=== PATIENT | female | born 1990 | race Caucasian/White ===

== ENCOUNTER 2021-03-16 19:05 | Outpatient (CLI) | payer SELFPAY | END 2021-03-16 19:06 | disposition EMS.NT | LOC: EMS 19:05 | DX: R55 Syncope and collapse (principal) ==

== ENCOUNTER 2022-03-08 08:00 | Outpatient (CLI) | payer OTHER ==
--- NOTE | 2022-03-08 10:06 | XRAY Report ---
PROCEDURE: Chest 2 View X-Ray INDICATIONS: COUGH TECHNIQUE: 2 view(s) of the chest. COMPARISON: None. FINDINGS: Surgical changes and devices: None. Lungs and pleura: No pleural effusions or pneumothorax. Lungs are clear. Mediastinum: Mediastinal contours are normal. Heart size is normal. Bones and chest wall: No suspicious bony abnormalities. Soft tissues appear unremarkable. IMPRESSION: Chest without acute cardiopulmonary abnormalities. No focal airspace disease. Reviewed by: Yvan Wolfe MD on 03/08/2022 10:05 AM PDT Approved by: Yvan Wolfe MD on 03/08/2022 10:05 AM PDT Station ID: [id number]
== END 2022-03-08 23:59 | disposition home or self-care (01) ==
LOC: DI.N 08:00
PROVIDERS: ATTEND Physician Assistant Medical
DX: R05.9 Cough, unspecified (principal)